=== PATIENT | female | born 1980 | race Caucasian/White ===

== ENCOUNTER 2019-04-29 11:47 | Emergency (ER) | payer MEDICAID, OTHER ==
[2019-04-29 12:11] VITALS: BP 125/83
--- NOTE | 2019-04-29 12:11 | Event Note ---
ED Screening Note ED Screening Note: Pt presents with right ankle and foot pain states she was carrying a table and a chair and tripped and had an inversion injury never injured before ambulatory with discomfort no PMHx allergy: NSAIDS -PUD non smoker rare ETOH no drug use This initial assessment/diagnostic orders/clinical plan/treatment(s) is/are subject to change based on patients health status, clinical progression and re- assessment by fellow clinical providers in the ED. Further treatment and workup at subsequent clinical providers discretion. Patient/guardian urged not to elope from the ED as their condition may be serious if not clinically assessed and managed. Initial orders include: XR of the right ankle, XR of the right foot
--- NOTE | 2019-04-29 13:10 | XRay Report ---
RIGHT ANKLE 3 VIEWS RIGHT FOOT 3 VIEWS INDICATION / CLINICAL INFORMATION: Pain in right foot and ankle after furniture fell on foot/ankle. COMPARISON: None available. FINDINGS: BONES and JOINT(S): No acute fracture or subluxation. No significant arthritis. SOFT TISSUES: No significant abnormality. ADDITIONAL FINDINGS: None. IMPRESSION: No acute findings. Signer Name: Dann Batista MD Signed: 04/29/2019 1:06 PM Workstation Name: [id number]
[2019-04-29] MEDS ORDERED: ULTRAM PO ONE (14:37)
--- NOTE | 2019-04-29 14:38 | Emergency Department Report ---
ED Lower Extremity HPI - General Chief Complaint: Extremity Injury, Lower Stated Complaint: FALL/R ANKLE PAIN Time Seen by Provider: 04/29/19 12:09 Source: patient Mode of arrival: Ambulatory Limitations: No Limitations - History of Present Illness Initial Comments: Pt presents with right ankle and foot pain states she was carrying a table and a chair and tripped and had an inversion injury never injured before ambulatory with discomfort no PMHx allergy: NSAIDS -PUD non smoker rare ETOH no drug use MD Complaint: ankle injury (right), foot injury (right) -: This morning Injury: Ankle: Right, Foot: Right Type of Injury: inversion Place: work Severity scale (0 -10): 8 Improves With: rest Worsens With: weight bearing, movement Associated Symptoms: swelling, able to partially bear weight - Related Data Previous Rx's Medication Instructions Recorded Last Taken Type traMADol [Ultram 50 MG tab] 50 mg PO Q6HR PRN #12 tablet 04/29/19 Unknown Rx Allergies Allergy/AdvReac Type Severity Reaction Status Date / Time No Known Allergies Allergy Unverified 04/29/19 11:48 ED Review of Systems ROS: Stated complaint: FALL/R ANKLE PAIN Other details as noted in HPI Comment: All other systems reviewed and negative ED Past Medical Hx - Past Medical History Previous Medical History?: No - Surgical History Additional Surgical History: cosmetic - Social History Smoking Status: Never Smoker Substance Use Type: Alcohol - Medications Home Medications: Home Medications Medication Instructions Recorded Confirmed Last Taken Type traMADol [Ultram 50 MG tab] 50 mg PO Q6HR PRN #12 tablet 04/29/19 Unknown Rx ED Physical Exam - General Limitations: No Limitations General appearance: alert, in no apparent distress - Head Head exam: Present: atraumatic, normocephalic - Eye Eye exam: Present: normal appearance - ENT ENT exam: Present: mucous membranes moist - Expanded Lower Extremity Exam Right Hip exam: Present: full ROM Upper Leg exam: Present: normal inspection, full ROM Knee exam: Present: normal inspection, full ROM Lower Leg exam: Present: normal inspection, full ROM Ankle exam: Present: full ROM, tenderness, swelling Foot/Toe exam: Present: full ROM. Absent: tenderness, swelling Neuro vascular tendon exam: Present: no vascular compromise - Neurological Exam Neurological exam: Present: alert, oriented X3 - Psychiatric Psychiatric exam: Present: normal affect, normal mood - Skin Skin exam: Present: warm, dry, intact, normal color. Absent: rash ED Course Vital Signs 04/29/19 12:09 Temperature 98.3 F Pulse Rate 80 Respiratory 18 Rate Blood Pressure 125/83 O2 Sat by Pulse 100 Oximetry ED Lower Extremity MDM - Radiology Data Radiology results: report reviewed Ordering Physician: CLINTON CARDOSO Date of Service: 04/29/19 Procedure(s): XR foot 3+V RT Accession Number(s): [id number] cc: CLINTON CARDOSO Fluoro Time In Minutes: RIGHT ANKLE 3 VIEWS RIGHT FOOT 3 VIEWS INDICATION / CLINICAL INFORMATION: Pain in right foot and ankle after furniture fell on foot/ankle. COMPARISON: None available. FINDINGS: BONES and JOINT(S): No acute fracture or subluxation. No significant arthritis. SOFT TISSUES: No significant abnormality. ADDITIONAL FINDINGS: None. IMPRESSION: No acute findings. Signer Name: Dann Batista MD Signed: 04/29/2019 1:06 PM Workstation Name: [id number] Transcribed By: MN Dictated By: Dann Batista MD Electronically Authenticated By: Dann Batista MD Signed Date/Time: 04/29/19 1306 DD/ 1305 TD/TT: - Medical Decision Making Assessment evaluated by this provider ACC. She is a 38-year-old female comes in for right ankle pain x-rays were negative for any acute fractures. There is the patient has a right ankle sprain patient be placed on tramadol since she has an ibuprofen allergy as well as a ankle stirrup. Patient follow-up with primary care provider if symptoms persist or gets worse Critical care attestation.: If time is entered above; I have spent that time in minutes in the direct care of this critically ill patient, excluding procedure time. ED Disposition Clinical Impression: Ankle sprain Disposition: DC-01 TO HOME OR SELFCARE Is pt being admited?: No Does the pt Need Aspirin: No Condition: Stable Instructions: Ankle Sprain (ED), Ankle Stirrup Splint (ED) Additional Instructions: Pain medication as prescribed. Apply ice to your ankle. Wear stirrup ankle stirrup as prescribed. Prescriptions: traMADol [Ultram 50 MG tab] 50 mg PO Q6HR PRN #12 tablet PRN Reason: Pain Referrals: TERRY KANG MD [Primary Care Provider] - 3-5 Days Forms: Work/School Release Form(ED)
== END 2019-04-29 15:04 | disposition home or self-care (01) ==
LOC: ED 11:47
DX: S93.401A Sprain of unspecified ligament of right ankle, initial encounter (principal); Z79.899 Other long term (current) drug therapy; W01.0XXA Fall on same level from slipping, tripping and stumbling without subsequent striking against object, initial encounter; Y93.89 Activity, other specified; Y92.89 Other specified places as the place of occurrence of the external cause; Y99.0 Civilian activity done for income or pay
CPT/HCPCS: 99283